=== PATIENT | male | born 1995 | race Caucasian/White ===

== ENCOUNTER 2019-02-20 17:41 | Emergency (ER) | payer MEDICAID, OTHER ==
[~2019-02-20] VITALS: Ht 172.7 cm; Wt 62.0 kg
[2019-02-20 18:48] VITALS: BP 140/114
== END 2019-02-20 23:00 | disposition left against medical advice (07) ==
LOC: ER 17:41
DX: Z53.21 Procedure and treatment not carried out due to patient leaving prior to being seen by health care provider (principal)